=== PATIENT | male | born 1995 | race Caucasian/White ===

== ENCOUNTER 2021-06-12 16:07 | Outpatient (CLI) | payer BC, SELFPAY ==
[2021-06-12 16:26] LABS: Hematocrit 44.8 % (42.0-52.0); Hemoglobin 14.9 g/dL (14.0-18.0); Mean Corpuscular HGB Conc 33.3 g/dl (32-36); Mean Corpuscular Hemoglobin 28.2 pg (26-34); Mean Corpuscular Volume 84.7 fl (80-100); Mean Platelet Volume 9.1 fl (7.4-10.4); Platelet Count Result 383 k/mm3 (150-375); Red Blood Count 5.29 M/mm3 (4.6-6.20); Red Cell Distribution Width 13.5 % (11.5-14.5)
[2021-06-12 16:38] LABS: Alanine Aminotransferase 20 U/L (4-50); Albumin Level 4.5 g/dL (3.5-5.1); Alkaline Phosphatase 73 U/L (38-126); Anion Gap 5 mmol/L (8-16); Aspartate Amino Transferase 94 U/L (17-59); Bilirubin,Total 0.2 mg/dL (0.2-1.3); Blood Urea Nitrogen 10 mg/dL (9-20); CRP 0.9 mg/dL (<1.0); Carbon Dioxide 28 mmol/L (22-30); Chloride 103 mmol/L (98-107); Estimated Glomerular Filt Rate > 60; Glucose 103 mg/dL (65-110); Potassium 3.9 mmol/L (3.4-5.0); Sodium 136 mmol/L (137-145)
[2021-06-12 16:57] LABS: Erythrocyte Sedimentation Rate 3 mm/hr (0-20)
== END 2021-06-12 16:08 | disposition home or self-care (01) ==
LOC: ANHLAB 16:09
PROVIDERS: PCP Family Medicine; Visit Provider Nurse Practitioner Family
DX: K51.90 Ulcerative colitis, unspecified, without complications (principal)
CPT/HCPCS: 36415; 80053; 85027; 85652; 86140

== ENCOUNTER 2021-12-09 15:54 | Outpatient (CLI) | payer BC, SELFPAY ==
[2021-12-09 16:12] LABS: Hematocrit 42.5 % (42.0-52.0); Hemoglobin 13.9 g/dL (14.0-18.0); Mean Corpuscular HGB Conc 32.7 g/dl (32-36); Mean Corpuscular Hemoglobin 28.6 pg (26-34); Mean Corpuscular Volume 87.4 fl (80-100); Mean Platelet Volume 8.9 fl (7.4-10.4); Platelet Count Result 367 k/mm3 (150-375); Red Blood Count 4.86 M/mm3 (4.6-6.20); Red Cell Distribution Width 13.5 % (11.5-14.5); White Blood Count 11.2 K/mm3 (4.5-10.0)
[2021-12-09 16:25] LABS: Alanine Aminotransferase 27 U/L (6-50); Albumin Level 4.3 g/dL (3.5-5.1); Alkaline Phosphatase 72 U/L (38-126); Anion Gap 15 mmol/L (8-16); Aspartate Amino Transferase 95 U/L (17-59); Bilirubin,Total 0.1 mg/dL (0.2-1.3); Blood Urea Nitrogen 11 mg/dL (9-20); CRP 0.9 mg/dL (<1.0); Calcium 8.9 mg/dL (8.4-10.2); Carbon Dioxide 28 mmol/L (22-30); Chloride 102 mmol/L (98-107); Estimated Glomerular Filt Rate > 60; Glucose 97 mg/dL (65-110); Potassium 3.7 mmol/L (3.4-5.0); Sodium 145 mmol/L (137-145)
[2021-12-09 17:12] LABS: Erythrocyte Sedimentation Rate 6 mm/hr (0-20)
== END 2021-12-09 15:55 | disposition home or self-care (01) ==
LOC: ANHLAB 15:54
PROVIDERS: PCP Family Medicine; Visit Provider Nurse Practitioner Family
DX: K51.90 Ulcerative colitis, unspecified, without complications (principal)
CPT/HCPCS: 36415; 80053; 85027; 85652; 86140

== ENCOUNTER 2022-01-27 08:11 | Outpatient (CLI) | payer BC, SELFPAY ==
--- NOTE | ~2022-01-27 | US_ITS ---
EXAMINATION: US abdomen limited DATE: 01/27/2022 08:46 INDICATION: R74.01 - Elevation of levels of liver transaminase levels TECHNIQUE: Multiple grayscale and Doppler ultrasound images of limited portions of the abdomen were o btained. COMPARISON: None available. FINDINGS: The visualized portions of the pancreas are normal. The liver is enlarged with increased ec hogenicity and normal echotexture. No surface nodularity. Normal hepatopetal flow in the main portal vein. The gallbladder is normal with no abnormal wall thickening, pericholecystic fluid or stones. Th e common bile duct measures 4.3 mm. There was no sonographic Mar sign. IMPRESSION: Hepatomegaly. Echogenic liver, most commonly due to steatosis but also can be seen with hepatitis and fibrosis. Reviewed, dictated and finalized at location K. GRINDER IMPRESSION: Hepatomegaly. Echogenic liver, most commonly due to steatosis but also can be s een with hepatitis and fibrosis.
== END 2022-01-27 08:12 | disposition home or self-care (01) ==
PROVIDERS: PCP Family Medicine; Visit Provider Nurse Practitioner
DX: R74.01 Elevation of levels of liver transaminase levels (principal); K51.90 Ulcerative colitis, unspecified, without complications
CPT/HCPCS: 76705

== ENCOUNTER 2022-02-03 10:06 | Outpatient (CLI) | payer BC, SELFPAY ==
[2022-02-03 11:28] LABS: INR 1.1; Prothrombin Time 13.4 Seconds (11.1-14.7)
[2022-02-03 12:02] LABS: Hepatitis B Surface Antigen Negative (Negative)
[2022-02-03 12:07] LABS: HAV RESULT Negative (Negative); Hepatitis B Core IgM Result Negative (Negative)
[2022-02-03 12:11] LABS: Iron 80 ug/dL (49-181)
[2022-02-03 12:19] LABS: Hepatitis C Virus Antibody Negative (Negative)
[2022-02-03 12:21] LABS: Percent Iron Saturation 24 % (20-50)
[2022-02-05 11:30] LABS: LKM 1 Antibody <=20.0 U (<=20.0)
[2022-02-05 11:32] LABS: Mitochondrial (M2) Ab (IgG) <=20.0 U (<=20.0)
[2022-02-05 20:37] LABS: Hepatitis C RNA, Quant PCR <15 IU/mL
[2022-02-06 10:07] LABS: Actin Antibody (IgG) <20 U (<20)
[2022-02-06 11:41] LABS: Ceruloplasmin 23 mg/dL (18-36)
[2022-02-06 19:42] LABS: Alpha Fetoprotein Tumor Marker 1.5 ng/mL (<6.1)
[2022-02-08 17:42] LABS: ALT 23 U/L (9-46); Alpha-2-Macroglobulin 119 mg/dL (106-279); Apolipoprotein A1 130 mg/dL (94-176); Fibrosis Score 0.04; Fibrosis Stage F0; GGT 24 U/L (3-70); Haptoglobin 174 mg/dL (43-212); Necroinflammat Act Grade A0; Total Bilirubin 0.4 mg/dL (0.2-1.2)
== END 2022-02-03 10:07 | disposition home or self-care (01) ==
LOC: ANHLAB 10:09
PROVIDERS: PCP Family Medicine; Visit Provider Nurse Practitioner
DX: R74.01 Elevation of levels of liver transaminase levels (principal)
CPT/HCPCS: 36415; 80074; 81596; 82105; 82390; 82728; 83516; 83520; 83540; 83550; 85610; 86038; 86039; 86376; 87522

== ENCOUNTER 2022-05-24 12:27 | Outpatient (CLI) | payer BC, SELFPAY ==
[2022-05-24 12:57] LABS: Hematocrit 43.7 % (42.0-52.0); Hemoglobin 14.3 g/dL (14.0-18.0); Mean Corpuscular HGB Conc 32.7 g/dl (32-36); Mean Corpuscular Hemoglobin 27.4 pg (26-34); Mean Corpuscular Volume 83.9 fl (80-100); Mean Platelet Volume 8.9 fl (7.4-10.4); Platelet Count Result 375 k/mm3 (150-375); Red Blood Count 5.21 M/mm3 (4.6-6.20); Red Cell Distribution Width 13.4 % (11.5-14.5); White Blood Count 9.4 K/mm3 (4.5-10.0)
[2022-05-24 13:19] LABS: Alanine Aminotransferase 27 U/L (6-50); Albumin Level 4.7 g/dL (3.5-5.1); Alkaline Phosphatase 81 U/L (38-126); Anion Gap 6 mmol/L (8-16); Aspartate Amino Transferase 115 U/L (17-59); Bilirubin,Total 0.6 mg/dL (0.2-1.3); Blood Urea Nitrogen 13 mg/dL (9-20); CRP 1.4 mg/dL (<1.0); Calcium 9.5 mg/dL (8.4-10.2); Carbon Dioxide 28 mmol/L (22-30); Chloride 104 mmol/L (98-107); Estimated Glomerular Filt Rate > 60; Glucose 106 mg/dL (65-110); Potassium 3.8 mmol/L (3.4-5.0); Sodium 138 mmol/L (137-145)
[2022-05-24 14:25] LABS: Erythrocyte Sedimentation Rate 10 mm/hr (0-20)
== END 2022-05-24 12:28 | disposition home or self-care (01) ==
PROVIDERS: PCP Family Medicine; Visit Provider Nurse Practitioner Family
DX: K51.90 Ulcerative colitis, unspecified, without complications (principal)
CPT/HCPCS: 36415; 80053; 85027; 85652; 86140

== ENCOUNTER 2022-06-02 15:05 | Outpatient (CLI) | payer BC, SELFPAY ==
[2022-06-09 20:12] LABS: Calprotectin, Stool 680 mcg/g
== END 2022-06-02 15:06 | disposition home or self-care (01) ==
PROVIDERS: Nurse Practitioner; PCP Family Medicine; Visit Provider Nurse Practitioner Family
DX: K50.90 Crohn's disease, unspecified, without complications (principal)
CPT/HCPCS: 83993

== ENCOUNTER 2023-08-05 11:20 | Emergency (ER) | payer BC, SELFPAY ==
[2023-08-05] VITALS (13 sets, daily range): BP systolic 116–151; BP diastolic 67–98; PULSE 83–98; RESP 14–22; TEMP 36.6–36.8; O2SAT 97–100
--- NOTE | ~2023-08-05 | CT_ITS ---
CT abdomen pelvis w con Ordering provider: Cornell Lynn MD History: . abdomeninal pain/Ulcerative colitis flare up,N/V/D X8DAYS . Comparison: None. Technique: CT abdomen with IV and without oral contrast. Radiation reduction technique utilized. DLP is 1184.42 mGy. Findings: VISUALIZED LOWER CHEST: Normal. UPPER ABDOMINAL ORGANS: Liver: Mild fat infiltration. Gallbladder: Normal. Spleen: Normal. Stomach/duodenum: Normal. Pancreas: Normal. Adrenals: Normal. Kidneys: Normal. Urinary bladder: The wall is thickened. Evaluation for cystitis advised. VISUALIZED BOWEL AND MESENTERY: Thickening of the wall of the large bowel extending from the rectum t o the cecum with a submucosal fat layer and fat stranding seen in the right hepatic flexure area whic h is suggestive of ulcerative colitis. No dilatation seen in the colon. No free air is seen. Increase d vascularity is seen in the mesentery. Normal appendix. The bowel is otherwise normal. Focal area of small bowel dilatation is seen in the left mid abdomen. No free fluid mesenteric lymphadenopathy is noted with the largest measures 1.8 cm.. RETROPERITONEUM: Normal aorta. Small retroperitoneal lymphadenopathy. MUSCULOSKELETAL: The superficial soft tissues are normal. Normal spine. IMPRESSION: Thickening of the wall of the colon from rectum to the cecum with submucosal fat layer and hyperemia of the mesentery suggestive of ulcerative colitis. Fat stranding around the hepatic flexure is noted which may be active disease. No dilatation, free air or fluid seen in the abdomen. Fat infiltration of the liver. Mesenteric lymphadenopathy. Reviewed, dictated and finalized at location A. IMPRESSION: Thickening of the wall of the colon from rectum to the cecum with submucosal fa t layer and hyperemia of the mesentery suggestive of ulcerative colitis. Fat st randing around the hepatic flexure is noted which may be active disease. No dil atation, free air or fluid seen in the abdomen. Fat infiltration of the liver. Mesenteric lymphadenopathy.
--- NOTE | 2023-08-05 11:29 | ED.NAVMDI ---
HPI - Nausea/Vomiting/Diarrhea General Chief complaint: Nausea/Vomiting/Diarrhea Stated complaint: N-V-D Time Seen by Provider: 08/05/23 11:28 Source: patient Mode of arrival: ambulatory Limitations: no limitations History of Present Illness HPI Narrative: 28-year-old male with a history of ulcerative colitis diagnosed in 2017 has been noncompliant with his mesalamine and presents to the ER with a one-week history of -- nausea with multiple episodes of vomiting. Today he has had 4 episodes of vomiting. His vomitus is bile stained. -- diarrhea for the past 1 week which has become bloody today. It is blood mixed with stool -- abdominal pain which is diffuse and is made worse by bowel movements. No fever or chills. No joint pains. MD elicited complaint: nausea, vomiting, diarrhea and other ( Hematochezia) Pertinent past history: anorexia Onset (ago): week(s) ( 1 week) Description of vomiting: watery and bilious Description of diarrhea: blood Associated nausea: Yes Associated abdominal pain: Yes Location of pain: diffuse Radiation: diffuse Pain consistency: constant Quality: aching Exacerbating factors: none Relieving factors: none Associated symptoms: denies other symptoms and nausea/vomiting Treatment prior to arrival: immodium and NSAIDs Related Data Allergies Allergy/AdvReac Type Severity Reaction Status Date / Time No Known Allergies Allergy Verified 08/05/23 11:27 Review of Systems Review of Systems: All systems reviewed & are unremarkable except as noted in HPI and below Constitutional: Constitutional: Reports as per HPI and Reports no additional constitutional complaints Eyes: Eyes: Reports as per HPI and Reports no additional eye complaints ENT: Reports system reviewed and no additional complaints, except as documented and Reports as per HPI Cardiovascular: Cardiovascular: Reports as per HPI and Reports no additional cardiovascular complaints Respiratory: Respiratory: Reports as per HPI, Reports no additional respiratory complaints and Reports no additional respiratory complaints Gastrointestinal: Gastrointestinal: Reports as per HPI, Reports no additional gastrointestinal complaints, Reports abdominal pain, Reports diarrhea, Reports nausea and Reports vomiting Genitourinary: Genitourinary: Reports no additional male genitourinary complaints Musculoskeletal: Musculoskeletal: Reports no additional musculoskeletal complaints and Reports as per HPI Integumentary/Breasts: Skin/Breast: Reports system reviewed and no additional complaints, except as docu and Reports as per HPI Neurologic: Reports system reviewed and no additional complaints, except as documented and Reports as per HPI Psychiatric: Psychiatric: Reports no additional psychiatric complaints and Reports as per HPI Endocrine: Endocrine: Reports no additional endocrine complaints and Reports as per HPI Hematologic/Lymphatic: Hematologic/Lymphatic: Reports no additional hematologic/lymphatic complaints and Reports as per HPI Allergic/Immunologic: Allergic/Immunologic: Reports no additional allergic/immunologic complaints and Reports as per HPI [facility] Past Medical History Medical History High aspartate aminotransferase level Obese Ulcerative colitis Surgical History Surgical History No history of previous surgery Family History Family History Father Diabetes mellitus Social History Social History Smoking status: Never smoker Alcohol intake: current Alcohol use details: Rarely drinks alcohol. Only on occassion. Lack of Transportation: No Lack of Food: Never True Current Housing: I Have Housing Concerned About Future Housing: No Difficulty Paying Gas/Electric Bills: No Difficulty Paying for Meds: No Cur
[2023-08-05 12:12] LABS: Appearance Urine Clear (Clear); Bilirubin Urine 2+ (Negative); Blood Urine 2+ (Negative); Color Urine Yellow (Yellow); Glucose Urine UA Negative (Negative); Ketones Urine 3+ (Negative); Leukocyte Esterase Ur Negative LEU/UL (Negative); Nitrate Urine Negative (Negative); Protein Urine 1+ (Negative); Specific Grav Ur >= 1.030 (1.010-1.020); Urobilinogen Urine 0.2 mg/dL (0.2-1.0)
[2023-08-05] MEDS: ONDANSETRON INJ 4 MG/2 ML VIAL IV PUSH (12:14)
[2023-08-05] MEDS: LACTATED RINGERS 1,000 ML 999 ML IV CONT ×2 (12:14→13:35)
[2023-08-05 12:17] LABS: Hematocrit 45.8 % (40.0-54.0); Hemoglobin 15.4 g/dL (14.0-18.0); Mean Corpuscular HGB Conc 33.6 g/dL (32-36); Mean Corpuscular Hemoglobin 27.5 pg (27.0-31.0); Mean Corpuscular Volume 81.6 fL (78.0-102.0); Mean Platelet Volume 8.7 fl (8.7-11.0); Platelet Count Result 491 K/mm3 (150-420); Red Blood Count 5.61 M/mm3 (4.70-6.10); Red Cell Distribution Width 13.1 % (11.6-14.4)
[2023-08-05 12:18] LABS: Add Urine Microscopic? YES; Bacteria Urine Trace /hpf; Mucus Urine Moderate /lpf; Squamous Epithelial Cell Urine Few /hpf (Few); WBC Urine None seen /hpf (0-3)
[2023-08-05 12:27] LABS: INR 1.3; Prothrombin Time 14.2 Seconds (9.50-12.1)
[2023-08-05 12:33] LABS: Lactic Acid Reflex 1.4 mmol/L (0.4-2.0)
[2023-08-05 12:40] LABS: Alanine Aminotransferase 13 U/L (16-63); Alkaline Phosphatase 60 U/L (46-116); Anion Gap 10 mmol/L (4-12); Aspartate Amino Transferase 43 U/L (15-37); Bilirubin,Total 0.5 mg/dL (0.00-1.00); Blood Urea Nitrogen 6 mg/dL (7-18); Calcium 9.4 mg/dL (8.5-10.1); Carbon Dioxide 28 mmol/L (21-32); Chloride 96 mmol/L (98-108); Estimated CRCL calculation 138 ml/min; Estimated Glomerular Filt Rate > 60; Glucose 90 mg/dL (70-99); Lipase 10 U/L (16-77); Osmolality Calculated 275 mOsm/kg (285-295); Phosphorus 3.7 mg/dL (2.6-4.7); Potassium 3.8 mmol/L (3.5-5.1); Sodium 134 mmol/L (136-145); Total Protein 7.4 g/dL (6.4-8.2)
[2023-08-05 12:41] LABS: CRP > 25.0 mg/dL (0.0-0.9)
[2023-08-05 12:46] LABS: Band Neutrophils Percent 31 % (0-6); Eosinophils Absolute Manual 1.12 K/mm3 (0.02-0.50); Eosinophils Percent Manual 7 % (1-6); Lymphocytes Absolute Manual 2.56 K/mm3 (1.1-4.5); Lymphocytes Percent Manual 16 % (18-44); Metamyelocytes Percent 2 %; Monocytes Percent Manual 10 % (3-9); Myelocytes Percent 1 %; Neutrophils Absolute Manual 10.24 K/mm3 (1.3-6.7); Neutrophils Percent Manual 33 % (46-73); Platelet Estimate Increased (Adequate); Total Cells Counted 100
[2023-08-05 13:23] LABS: Erythrocyte Sedimentation Rate 4 mm/hr (0-15)
--- NOTE | 2023-08-05 14:45 | PC.NURSE ---
fecal sample obtained @ 1447 and sent to lab for testing
[2023-08-05 15:45] LABS: Toxigenic C. Diff NEGATIVE (NEGATIVE)
[2023-08-05 15:46] LABS: Occult Blood Positive (Negative)
--- NOTE | 2023-08-06 12:45 | PC.NURSE ---
final stool WBC smear reviewed. many wbc's present. erp reviewed. no change in plan of care
--- NOTE | 2023-08-07 17:00 | PC.NURSE ---
FINAL SHIGA TOXINS RFLX ECOLI NOT DETECTED FINAL CAMPYLOBACTER EIA NOT DETECTED SALMONELLA/SHIGELLA STILL PENDING
--- NOTE | 2023-08-08 14:10 | PC.NURSE ---
STOOL CULTURE FINAL SALMONELLA/SHIGELLA CULTURE FINAL NO SALMONELLA OR SHIGELLA ISOLATED
== END 2023-08-05 14:46 | disposition home or self-care (01) ==
PROVIDERS: Emergency Provider Internal Medicine Critical Care Medicine; PCP Family Medicine
DX: K51.90 Ulcerative colitis, unspecified, without complications (principal)
CPT/HCPCS: 36415; 74177; 80053; 81001; 82272; 83605; 83690; 84100; 85025; 85610; 85652; 86140; 87045; 87427; 87449; 87493; 89055; 96361; 96374; 99284; J2405; J7120; Q9967

== ENCOUNTER 2023-10-12 01:38 | Day surgery (SDC) | payer BC, SELFPAY ==
[2023-09-28 13:16] VITALS: BMI 36.6
--- NOTE | 2023-10-12 12:39 | WPDANESEPPF ---
Anes - Initial Pre Proc Eval Procedure: Operation Date: 10/12/23 13:30 Proposed Procedures p Colonoscopy - Ruddy Smith MD Date/Time: 10/12/23 12:39 Surgeon: Ruddy Smith MD Pre Op Diagnosis: Ulcerative colitis w/o complications Patient Data Age: 28 Gender: M Height: 1.78 m Weight: 115.9 kg Allergies Allergy/AdvReac Type Severity Reaction Status Date / Time No Known Allergies Allergy Verified 09/28/23 13:15 Home Medications Medication Instructions Recorded Confirmed Type mesalamine 1.2 gram tablet,delayed 4.8 g PO DAILY 3 months #360 tabs 08/12/23 09/28/23 Rx release Patient hx anesthesia problems: none Family hx anesthesia problems: none Results Review: All pre-operative results and documents have been reviewed as part of the pre-operative evaluation. [facility] Past Medical History Medical History (Updated 08/12/23 @ 16:05 by RCAHELL GtzC) Elevated liver enzymes Fatty liver High aspartate aminotransferase level High risk medication use Need for hepatitis B screening test Obese Ulcerative colitis Surgical History Surgical History No history of previous surgery Family History Family History Father Diabetes mellitus Social History Social History Smoking status: Never smoker Alcohol intake: current Alcohol use details: Rarely drinks alcohol. Only on occassion. Substance use type: does not use Lack of Transportation: No Lack of Food: Never True Current Housing: I Have Housing Concerned About Future Housing: No Difficulty Paying Gas/Electric Bills: No Difficulty Paying for Meds: No Currently Unemployed: No Education: High School Diploma/GED Difficulty w/ Childcare or Family Care: No Living arrangements: with family Occupation/Education: occupation Additional occupation/education comments: Work at [employer] Spiritual care concerns: No Anes - Eval Final PreProcedure Day of Procedure 10/12/23 12:39 Patient weight: obese Heart: regular rate and rhythm Lungs: clear to auscultation Airway: Mallampati scale class III Neurological: alert and oriented Last oral intake: >/= 8 hours ASA classification: III Emergent: no Anesthetic plan: proceed Anesthesia type and monitoring: general GIVS and standard monitoring Results Review: All pre-operative results and documents have been reviewed as part of the pre-operative evaluation. Informed Consent: The patient's anesthetic plan and its attendant risks and benefits were discussed with the patient/family/POA. Questions were solicited and answers provided to the satisfaction of the patient/family/POA.
[2023-10-12 12:48] VITALS: BP 122/93; PULSE 94; RESP 18; TEMP 36.3; O2SAT 95
[2023-10-12] MEDS: LACTATED RINGERS 1,000 ML 150 ML IV CONT (12:57)
--- NOTE | 2023-10-12 13:14 | PM.HPGS ---
History of Present Illness History of Present Illness Consent: Risks, benefits, and alternatives have been discussed and questions answered. Patient agrees to proceed with procedure. Chief complaint: Ulcerative colitis w/o complications Narrative: Stevenson Romano is a 28 year old male here for colonoscopy. He was first dx with UC in 2016 and maintained on mesalamine 4.8 mg daily. His last colonoscopy was in 2019, moderate inflammation was found in a circumferential pattern from the transverse colon to the cecum, mild inflammation noted from the rectosigmoid area to the descending colon. Random biopsy showed chronic colitis but no active colitis and no evidence of dysplasia or malignancy. Never used biologics. Review of Systems Review of Systems: All systems reviewed & are unremarkable except as noted in HPI and below PMFSH Past Medical History Medical History (Updated 08/12/23 @ 16:05 by AYSHA tGz) Elevated liver enzymes Fatty liver High aspartate aminotransferase level High risk medication use Need for hepatitis B screening test Obese Ulcerative colitis Surgical History Surgical History No history of previous surgery Family History Family History Father Diabetes mellitus Social History Social History Smoking status: Never smoker Alcohol intake: current Alcohol use details: Rarely drinks alcohol. Only on occassion. Substance use type: does not use Lack of Transportation: No Lack of Food: Never True Current Housing: I Have Housing Concerned About Future Housing: No Difficulty Paying Gas/Electric Bills: No Difficulty Paying for Meds: No Currently Unemployed: No Education: High School Diploma/GED Difficulty w/ Childcare or Family Care: No Living arrangements: with family Occupation/Education: occupation Additional occupation/education comments: Work at [employer] Resources care concerns: No Meds Home Medications and Allergies Home Medications Medication Instructions Recorded Confirmed Type mesalamine 1.2 gram tablet,delayed 4.8 g PO DAILY 3 months #360 tabs 08/12/23 10/12/23 Rx release Allergies Allergy/AdvReac Type Severity Reaction Status Date / Time No Known Allergies Allergy Verified 10/12/23 12:47 Vital Signs Vital Signs - 24 hr 10/12/23 12:48 Temperature 97.3 F L Pulse Rate 94 Respiratory Rate 18 Blood Pressure 122/93 H Pulse Oximetry 95 Oxygen Delivery Room Air Exam Const: General: comfortable and no acute distress HENMT: Face/Nose/Sinus: Normal nares present Eyes: General: appearance normal, both eyes and all related structures Neck: Neck: no JVD Resp: Auscultation: clear to auscultation bilaterally Cardio: Rate: regular rate Rhythm: regular rhythm GI: Inspection: non-distended GI Palp: Yes Soft to palpation Skin: General skin exam: normal color Neuro: General: gait normal Speech: normal speech Extrem: General: normal to inspection Psych: Mental Status: mental status grossly normal Assessment and Plan Assessment and plan (1) Ulcerative colitis: Code(s): K51.90 - Ulcerative colitis, unspecified, without complications Status: Acute Assessment and Plan: colonoscopy with random biopsies starting next year will need to get colonoscopies yearly for dysplasia surveillance on mesalamine
[2023-10-12 13:28] VITALS: BP 118/82; PULSE 86; RESP 17; O2SAT 95
[2023-10-12 13:38] VITALS: BP 131/84; PULSE 85; RESP 20; O2SAT 94
[2023-10-12 13:48] VITALS: BP 122/82; PULSE 78; RESP 20; O2SAT 100
== END 2023-10-12 13:58 | disposition home or self-care (01) ==
PROVIDERS: PCP Family Medicine; Referring Provider Nurse Practitioner Family; Visit Provider Internal Medicine Gastroenterology
PROC: 0DJD8ZZ Inspection of Lower Intestinal Tract, Via Natural or Artificial Opening Endoscopic (ICD-10-PCS; CPT 45378; principal; 2023-10-12 13:30)
DX: K52.89 Other specified noninfective gastroenteritis and colitis (principal); E66.9 Obesity, unspecified; Z68.38 Body mass index [BMI] 38.0-38.9, adult
CPT/HCPCS: 45380; 88305; J2704; J7120

== ENCOUNTER 2023-11-09 09:21 | Outpatient (CLI) | payer BC, SELFPAY ==
[2023-11-09 09:52] LABS: Hematocrit 46.2 % (42.0-52.0); Hemoglobin 15.2 g/dL (14.0-18.0); Mean Corpuscular HGB Conc 32.9 g/dl (32-36); Mean Corpuscular Hemoglobin 28.4 pg (26-34); Mean Corpuscular Volume 86.4 fl (80-100); Platelet Count Result 358 k/mm3 (150-375); Red Blood Count 5.35 M/mm3 (4.6-6.20); Red Cell Distribution Width 13.6 % (11.5-14.5); White Blood Count 10.4 K/mm3 (4.5-10.0)
[2023-11-09 10:09] LABS: Alanine Aminotransferase 28 U/L (6-50); Albumin Level 4.5 g/dL (3.5-5.1); Alkaline Phosphatase 73 U/L (38-126); Anion Gap 7 mmol/L (4-12); Aspartate Amino Transferase 36 U/L (17-59); Bilirubin,Total 0.6 mg/dL (0.2-1.3); Blood Urea Nitrogen 11 mg/dL (9-20); CRP 0.9 mg/dL (<1.0); Calcium 9.5 mg/dL (8.4-10.2); Carbon Dioxide 29 mmol/L (22-30); Chloride 100 mmol/L (98-107); Estimated Glomerular Filt Rate > 60; Glucose 101 mg/dL (65-110); Potassium 4.2 mmol/L (3.4-5.0); Sodium 136 mmol/L (137-145)
[2023-11-09 11:19] LABS: Erythrocyte Sedimentation Rate 11 mm/hr (0-20)
[2023-11-16 23:23] LABS: ALT 20 U/L (9-46); Alpha-2-Macroglobulin 134 mg/dL (106-279); Apolipoprotein A1 153 mg/dL (94-176); Fibrosis Score 0.04; Fibrosis Stage F0; GGT 29 U/L (3-70); Haptoglobin 227 mg/dL (43-212); Necroinflammat Act Grade A0; Reference ID 5129432; Total Bilirubin 0.4 mg/dL (0.2-1.2)
== END 2023-11-09 09:22 | disposition home or self-care (01) ==
PROVIDERS: PCP Family Medicine; Visit Provider Nurse Practitioner Family
DX: K51.90 Ulcerative colitis, unspecified, without complications (principal); K76.0 Fatty (change of) liver, not elsewhere classified; Z11.59 Encounter for screening for other viral diseases; Z79.899 Other long term (current) drug therapy; R74.8 Abnormal levels of other serum enzymes
CPT/HCPCS: 36415; 80053; 81596; 85027; 85652; 86140

== ENCOUNTER 2024-05-09 09:31 | Outpatient (CLI) | payer OTHER, SELFPAY ==
[2024-05-09 10:36] LABS: Hematocrit 47.1 % (42.0-52.0); Hemoglobin 15.2 g/dL (14.0-18.0); Mean Corpuscular HGB Conc 32.3 g/dl (32-36); Mean Corpuscular Hemoglobin 27.7 pg (26-34); Mean Corpuscular Volume 85.8 fl (80-100); Mean Platelet Volume 9.2 fl (7.4-10.4); Platelet Count Result 441 k/mm3 (150-375); Red Blood Count 5.49 M/mm3 (4.6-6.20); Red Cell Distribution Width 13.2 % (11.5-14.5); White Blood Count 10.8 K/mm3 (4.5-10.0)
--- OUTSIDE RECORDS SUMMARY | 2024-05-09 10:38 | XMS_ITS | Referral Summary ---
Author Organization [facility] Address [address] [place] [address] Care Team Providers Care Racing Mechanic Name Role Phone Josh Garza MD Primary Care Provider Allergies No known active allergies Medications mesalamine (LIALDA) 1.2 gram EC tabletIndicatio ns:Ulcerative Colitis Take 4 tablets (4.8 g total) by mouth daily 120 tablet 05/08/2020 Active Active Problems Problem Noted Date Diagnosed Date High risk medications (not anticoagulants) long- term use 02/23/2020 Ulcerative colitis with complication 05/12/2019 Overview (05/12/2019): Added automatically from request for surgery [id number] Ulcerative colitis 12/27/2017 Overview (02/23/2020): Year of diagnosis: 2016. Year symptoms began: 2017. Distribution: Extensive (E3). Extraintestinal manifestations: none. Complications: none. Prior treatments: lialda. Current treatment: Entyvio. Prior surgeries: none. Endoscopies: Colonoscopy 07/2019 .Preparation of the colon was fair. - Moderately active (Moya Score 2) ulcerative colitis. Biopsied. - Mild (Moya Score 1) ulcerative colitis, in remission since the last examination. PATH: Large intestine, random colon, endoscopic biopsy - Chronic colitis with marked chronic inflammation, and mucosal architectural disarray - No active colitis or granulomas - No evidence of dysplasia or malignancy Imaging: none Immunizations Immunization Administration Dates Next Due DT 10/19/1998,05/23/1996,04/02/1995 ,1994 DTP / HiB 1994 Hep B, Adolescent or Pediatric 04/02/1995,1994,1994 HiB 04/02/1995,1994 MMR 07/20/1998,09/17/1995 OPV 07/20/1998,04/02/1995,1994 ,1994 Social History Tobacco Use Types Packs/Day Years Used Date Smoking Tobacco: Never Smokeless Tobacco: Never Alcohol Use Standard Drinks/Week Comments Not Currently 0 (1 standard drink = 0.6 oz pur e alcohol) Personal Safety Answer Date Recorded Getting School Help Needed Not on file 05/02 Sex and Gender Information Value Date Recorded Sex Assigned at Not on file Legal Sex Male 10:27 AM CDT Gender Identity Not on file Sexual Orientation Not on file Last Filed Vital Signs Vital Sign Reading Time Taken Comments Blood Pressure 119/74 02/21/2020 4:01 PM GREEN CHAIN OPERATOR Pulse 55 02/21/2020 4:01 PM GREEN CHAIN OPERATOR Temperature 36 C (96.8 F) 02/21/2020 4:01 PM GREEN CHAIN OPERATOR Respiratory Rate 15 07/28/2019 9:08 AM CDT Oxygen Saturation 100% 07/28/2019 9:08 AM CDT Inhaled Oxygen Concentration - - Weight 113.8 kg (250 lb 12.8 oz) 02/21/2020 4:01 PM GREEN CHAIN OPERATOR Height 177.8 cm (5' 10 ) 02/21/2020 4:01 PM GREEN CHAIN OPERATOR Body Mass Index 35.99 02/21/2020 4:01 PM GREEN CHAIN OPERATOR Plan of Treatment Not on file Insurance ON LICENSE OF [facility] Advance Directives For more information, please contact: [phone] * Full Code (Latest Code Status on File) Date Activated Date Inactivated Comments 07/28/2019 7:40 AM 07/28/2019 2:07 PM Care Teams Racing Mechanic Relationship Specialty Start Date End Date Josh Garza MD PCP - General 12/23/16
--- OUTSIDE RECORDS SUMMARY | 2024-05-09 10:38 | XMS_ITS | Clinical Summary ---
Author Organization [facility] Address [address] [place] [id number] Care Team Providers Care Client Engagement Manager Name Role Phone None, Provider Primary Care Provider Unavaila ble Social History Tobacco Use Types Packs/Day Years Used Date Smoking Tobacco: Never Assessed Sex and Gender Information Value Date Recorded Sex Assigned at Not on file Legal Sex Male 6:00 PM AMBULANCE ASSISTANT Gender Identity Not on file Sexual Orientation Not on file Plan of Treatment Health Maintenance Due Date Last Done Comments Annual Physical 1997 Hepatitis C 2012 DTaP, Tdap and Td Vaccines ( 1 - Tdap) 2013 Hepatitis B Vaccines (1 of 3 - 19+ 3-dose series) 2013 COVID-19 Vaccine (2023-2 5 season) 2023 Influenza Adult (#1) 2023 HPV Vaccines Aged Out No longer eligi ble based on patient's age to complete this topic Meningococcal B Vaccine Aged Out No l onger eligible based on patient's age to complete this topic Meningococcal Vaccine Aged Out No snehal tod eligible based on patient's age to complete this topic Pneumococcal Vaccine: Pediat rics (0 to 5 Years) and At-Risk Patients (6 to 64 Years) Aged Out No longer eligible b ased on patient's age to complete this topic RSV Immunizations Under 20 Months Aged Out No longer eligible based on patient's age to complete this topic Care Teams Client Engagement Manager Relationship Specialty Start Date End Date None, Provider, PCP - General 04/30/20
--- OUTSIDE RECORDS SUMMARY | 2024-05-09 10:39 | XMS_ITS | Clinical Summary ---
Author Organization [facility] Address [address] [place] [address] Care Team Providers Care Management Sme Name Role Phone Josh Garza MD Primary [...] (05/12/2019): Added automatically from request for surgery [id number] Ulcerative colitis 12/27/2017 Overview (02/23/2020): Year of diagnosis: 2016. Year symptoms began: 2016. Distribution: Extensive (E3). Extraintestinal manifestations: none. Complications: [...] HiB 04/02/1995,1994 MMR 07/20/1998,09/17/1995 OPV 07/20/1998,04/02/1995,1994 ,1994 Medical History Medical History Date Comments Ulcerative colitis (HCC) Chronic constipation Chronic diarrhea Family History Medical History Relation Name Comments Diabetes Father Family history of diabetes mellitus - (Added by TW Conv) Cancer Maternal Grandfather Family history of malignant neoplasm - Relation: Grandfather (Added by TW Conv) Relation Name Status Comments Father Maternal Grandfather Social History Tobacco Use Types Packs/Day Years [...] on file Sexual Orientation Not on file Obstetrics History Last Filed Vital Signs Vital Sign Reading Time Taken Comments Blood Pressure 119/74 02/21/2020 4:01 PM OVERLOCK SEWING MACHINE OPERATOR Pulse 55 02/21/2020 4:01 PM OVERLOCK SEWING MACHINE OPERATOR Temperature 36 C (96.8 F) 02/21/2020 4:01 PM OVERLOCK SEWING MACHINE OPERATOR Respiratory Rate 15 07/28/2019 9:08 AM CDT Oxygen Saturation 100% 07/28/2019 9:08 AM CDT Inhaled Oxygen Concentration - - Weight 113.8 kg (250 lb 12.8 oz) 02/21/2020 4:01 PM OVERLOCK SEWING MACHINE OPERATOR Height 177.8 cm (5' 10 ) 02/21/2020 4:01 PM OVERLOCK SEWING MACHINE OPERATOR Body Mass Index 35.99 02/21/2020 4:01 PM OVERLOCK SEWING MACHINE OPERATOR Plan of Treatment Not on file Insurance [employer] [facility] Advance Directives For more information, please contact: [phone] * Full Code (Latest Code Status on File) Date Activated Date Inactivated Comments 07/28/2019 7:40 AM 07/28/2019 2:07 PM Care Teams Management Sme Relationship Specialty Start Date End Date Josh Garza MD PCP - General 12/23/16
--- OUTSIDE RECORDS SUMMARY | 2024-05-09 10:39 | XMS_ITS | Encounter Summary ---
Author Organization [facility] Address [address] [place] [address] Phone Care Team Providers Care Advice Line Rn Name Role Phone Josh Garza MD Primary Care Provider [phone] Encounter Details Date Type Department Care Team (Late st Contact Info) Description 04/30/2020 Orders Only [facility] Scanning, Provider Social History Tobacco Use Types Packs/Day Years Used Date Smoking Tobacco: Never Smokeless Tobacco: Never Alcohol Use Standard Drinks/Week Comments Not Currently 0 (1 standard drink = 0.6 oz pur e alcohol) Sex and Gender Information Value Date Recorded Sex Assigned at Not on file Legal Sex Male 10:27 AM CDT Gender Identity Not on file Sexual Orientation Not on file documented as of this encounter Plan of Treatment Not on file documented as of this encounter Procedures Procedure Name Priority Date/Time Associated Diagnosis Comments SCAN - LABS 04/30/2020 documented in this encounter Results * SCAN - LABS (04/30/2020) us Provider Scanning Final Result documented in this encounter Visit Diagnoses Not on filedocumented in this encounter Care Teams Advice Line Rn Relationship Specialty Start Date End Date Josh Garza MD PCP - General 12/23/16 documented as of this encounter
[2024-05-09 10:58] LABS: Alanine Aminotransferase 69 U/L (6-50); Albumin Level 4.6 g/dL (3.5-5.1); Alkaline Phosphatase 85 U/L (38-126); Anion Gap 7 mmol/L (4-12); Aspartate Amino Transferase 44 U/L (17-59); Bilirubin,Total 0.5 mg/dL (0.2-1.3); Blood Urea Nitrogen 11 mg/dL (9-20); CRP 0.8 mg/dL (<1.0); Carbon Dioxide 30 mmol/L (22-30); Chloride 102 mmol/L (98-107); Estimated Glomerular Filt Rate > 60; Glucose 105 mg/dL (65-110); Potassium 4.4 mmol/L (3.4-5.0); Sodium 139 mmol/L (137-145)
[2024-05-09 11:57] LABS: Erythrocyte Sedimentation Rate 4 mm/hr (0-20)
== END 2024-05-09 09:32 | disposition home or self-care (01) ==
LOC: ANHLAB 09:33
PROVIDERS: Visit Provider Nurse Practitioner Family
DX: K51.90 Ulcerative colitis, unspecified, without complications (principal)
CPT/HCPCS: 36415; 80053; 85027; 85652; 86140

== ENCOUNTER 2024-05-23 11:11 | Outpatient (CLI) | payer OTHER, SELFPAY ==
--- OUTSIDE RECORDS SUMMARY | 2024-05-23 13:02 | XMS_ITS | Clinical Summary ---
Author Organization [facility] Address [address] [place] [address] Care Team Providers Care Drier Feeder Name Role Phone None, Provider Primary Care Provider Unavaila ble Social History Tobacco Use Types Packs/Day Years Used Date Smoking Tobacco: Never Assessed Sex and Gender Information Value Date Recorded Sex Assigned at Not on file Legal Sex Male 6:00 PM MASSEUR/MASSEUSE Gender Identity Not on file Sexual Orientation Not on file Plan of Treatment Health Maintenance Due Date Last Done Comments Annual Physical 1997 Hepatitis C 2012 DTaP, Tdap and Td Vaccines ( 1 - Tdap) 2013 Hepatitis B Vaccines (1 of 3 - 19+ 3-dose series) 2013 COVID-19 Vaccine (2023-2 5 season) 2023 HPV Vaccines Aged Out No longer [...] age to complete this topic Care Teams Drier Feeder Relationship Specialty Start Date End Date None, Provider, PCP - General 04/30/20
--- OUTSIDE RECORDS SUMMARY | 2024-05-23 13:02 | XMS_ITS | Clinical Summary ---
Author Organization [facility] Address [address] [place] [address] Care Team Providers Care Associate Professor Of Medicine Name Role Phone Josh Garza MD Primary [...] (05/12/2019): Added automatically from request for surgery [id number] Ulcerative colitis 12/27/2017 Overview (02/23/2020): Year of [...] Comments Blood Pressure 119/74 02/21/2020 4:01 PM INFORMATION ANALYST Pulse 55 02/21/2020 4:01 PM INFORMATION ANALYST Temperature 36 C (96.8 F) 02/21/2020 4:01 PM INFORMATION ANALYST Respiratory Rate 15 07/28/2019 9:08 AM CDT Oxygen Saturation 100% 07/28/2019 9:08 AM CDT Inhaled Oxygen Concentration - - Weight 113.8 kg (250 lb 12.8 oz) 02/21/2020 4:01 PM INFORMATION ANALYST Height 177.8 cm (5' 10 ) 02/21/2020 4:01 PM INFORMATION ANALYST Body Mass Index 35.99 02/21/2020 4:01 PM INFORMATION ANALYST Plan of Treatment Not on file Insurance [employer] [facility] Advance Directives For more information, please contact: [phone] * Full Code (Latest Code Status on File) Date Activated Date Inactivated Comments 07/28/2019 7:40 AM 07/28/2019 2:07 PM Care Teams Associate Professor Of Medicine Relationship Specialty Start Date End Date Josh Garza MD PCP - General 12/23/16
--- OUTSIDE RECORDS SUMMARY | 2024-05-23 13:02 | XMS_ITS | Encounter Summary ---
Author Organization [facility] Address [address] [place] [address] Phone Care Team Providers Care Obgyn Specialist Name Role Phone Josh Garza MD Primary Care Provider Encounter Details Date Type Department Care Team [...] on filedocumented in this encounter Care Teams Obgyn Specialist Relationship Specialty Start Date End Date Josh Garza MD PCP - General 12/23/16 documented as of this encounter
--- OUTSIDE RECORDS SUMMARY | 2024-05-23 13:02 | XMS_ITS | Referral Summary ---
Author Organization [facility] Address [address] [place] [address] Care Team Providers Care Electronics Research Engineer Name Role Phone Josh Garza MD Primary [...] (05/12/2019): Added automatically from request for surgery [id number] Ulcerative colitis 12/27/2017 Overview (02/23/2020): Year of [...] Comments Blood Pressure 119/74 02/21/2020 4:01 PM GAME DESIGNER/CREATIVE DIRECTOR Pulse 55 02/21/2020 4:01 PM GAME DESIGNER/CREATIVE DIRECTOR Temperature 36 C (96.8 F) 02/21/2020 4:01 PM GAME DESIGNER/CREATIVE DIRECTOR Respiratory Rate 15 07/28/2019 9:08 AM CDT Oxygen Saturation 100% 07/28/2019 9:08 AM CDT Inhaled Oxygen Concentration - - Weight 113.8 kg (250 lb 12.8 oz) 02/21/2020 4:01 PM GAME DESIGNER/CREATIVE DIRECTOR Height 177.8 cm (5' 10 ) 02/21/2020 4:01 PM GAME DESIGNER/CREATIVE DIRECTOR Body Mass Index 35.99 02/21/2020 4:01 PM GAME DESIGNER/CREATIVE DIRECTOR Plan of Treatment Not on file Insurance [facility] Advance Directives For more information, please contact: [phone] * Full Code (Latest Code Status on File) Date Activated Date Inactivated Comments 07/28/2019 7:40 AM 07/28/2019 2:07 PM Care Teams Electronics Research Engineer Relationship Specialty Start Date End Date Josh Garza MD PCP - General 12/23/16
== END 2024-05-23 11:12 | disposition home or self-care (01) ==
PROVIDERS: PCP Family Medicine; Visit Provider Nurse Practitioner Family
DX: K51.90 Ulcerative colitis, unspecified, without complications (principal); R19.7 Diarrhea, unspecified
CPT/HCPCS: 83993